=== PATIENT | male | born 1995 | race Caucasian/White ===

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

== ENCOUNTER 2019-07-29 18:47 | Emergency (ER) | payer SELFPAY ==
[2019-07-29 18:52] VITALS: BP 134/81
[2019-07-29] MEDS ORDERED: LIDOCAINE 1% INJ-PF (10 MG/ML) 30 ML SDV INJ ONE (19:00)
[2019-07-29] MEDS ORDERED: AZITHROMYCIN 250 MG TABLET PO ONE (19:00)
[2019-07-29] MEDS ORDERED: CEFTRIAXONE INJ 250 MG VIAL IM ONE (19:06)
--- NOTE | 2019-07-29 19:06 | ER Document Report ---
ED GI/ - General Chief Complaint: STD Exposure Stated Complaint: POSSILE STD Time Seen by Provider: 07/29/19 18:58 Mode of Arrival: Ambulatory Information source: Patient Notes: 23-year-old male presented to ED for request for treatment for STD. He states his was seen last night for chlamydia she did test positive for chlamydia. He states he need to be tested and treated. He states he had no other concerns but the chlamydia. He is alert oriented respirations regular nonlabored speaking in full sentences. He states he did not have any symptoms at this time. TRAVEL OUTSIDE OF THE [place] IN LAST 30 DAYS: No - HPI Patient complains to provider of: Other - Concern for STD as his has been tested positive for chlamydia Onset: Other - States his tested positive yesterday Quality of pain: No pain Pain Level: Denies Sexual history: Unprotected intercourse Associated symptoms: None Exacerbated by: Denies Relieved by: Denies Similar symptoms previously: No Recently seen / treated by doctor: No - Related Data Allergies/Adverse Reactions: No Known Allergies Allergy (Verified 07/29/19 18:57) Past Medical History - General Information source: Patient - Social History Smoking Status: Current Every Day Smoker Cigarette use (# per day): Yes - Half pack a day Chew tobacco use (# tins/day): No Smoking Education Provided: Yes - 4 minutes Frequency of alcohol use: Occasional Drug Abuse: None Family History: None Patient has suicidal ideation: No Patient has homicidal ideation: No - Past Medical History Cardiac Medical History: Reports: None Pulmonary Medical History: Reports: None EENT Medical History: Reports: None Neurological Medical History: Reports: None Endocrine Medical History: Reports: None Renal/ Medical History: Reports: None Malignancy Medical History: Reports None GI Medical History: Reports: None Musculoskeletal Medical History: Reports None Skin Medical History: Reports None Psychiatric Medical History: Reports: Hx Attention Deficit Hyperactivity Disorder Traumatic Medical History: Reports: None Infectious Medical History: Reports: None Past Surgical History: Reports: Hx Tonsillectomy - ADNOIDS - Immunizations Immunizations up to date: Yes Hx Diphtheria, Pertussis, Tetanus Vaccination: Yes Review of Systems - Review of Systems Constitutional: No symptoms reported EENT: No symptoms reported Cardiovascular: No symptoms reported Respiratory: No symptoms reported Gastrointestinal: No symptoms reported Genitourinary: No symptoms reported Male Genitourinary: No symptoms reported, Other - Concern for STD as he states his tested positive for chlamydia Musculoskeletal: No symptoms reported Skin: No symptoms reported Hematologic/Lymphatic: No symptoms reported Neurological/Psychological: No symptoms reported Physical Exam - Vital signs Vitals: Temp Pulse Resp BP Pulse Ox 98.8 F 94 18 134/81 H 98 07/29/19 18:50 07/29/19 18:50 07/29/19 18:50 07/29/19 18:50 07/29/19 18:50 Interpretation: Normal - General General appearance: Appears well, Alert - HEENT Head: Normocephalic, Atraumatic Eyes: Normal Pupils: PERRL - Respiratory Respiratory status: No respiratory distress Chest status: Nontender Breath sounds: Normal Chest palpation: Normal - Cardiovascular Rhythm: Regular Heart sounds: Normal auscultation Murmur: No - Abdominal Inspection: Normal Distension: No distension Bowel sounds: Normal Tenderness: Nontender Organomegaly: No organomegaly - Back Back: Normal, Nontender - Extremities General upper extremity: Normal inspection, Nontender, Normal color, Normal ROM, Normal temperature General lower extremity: Normal inspection, Nontender, Normal color, Normal ROM, Normal temperature, Normal weight bearing. No: Brendan's sign - Neurological Neuro grossly intact: Yes Cognition: Normal Orientation: AAOx4 Bulan Coma Scale Eye Opening: Spontaneous [place] Coma Scale Verbal: Oriented Faizan Coma Scale Motor: Obeys Commands Faizan Coma Scale Total: 15 Speech: Normal Motor strength normal: LUE, RUE, LLE, RLE Sensory: Normal - Psychological Associated symptoms: Normal affect, Normal mood - Skin Skin Temperature: Warm Skin Moisture: Dry Skin Color: Normal Course - Re-evaluation Re-evalutation: 07/29/19 22:33 Was treated with Rocephin and azithromycin as his was tested positive ye sterday for chlamydia. Patient states he has no symptoms at this time. Patient was given instructions on no sexual intercourse for 10 days and to be retested to ensure the chlamydia was completely gone and to test for any other STDs present. Verbalized understanding and agreement with treatment plan and patient was discharged home. - Vital Signs Vital signs: Temp Pulse Resp BP Pulse Ox 98.8 F 94 18 134/81 H 98 07/29/19 18:57 07/29/19 18:50 07/29/19 18:50 07/29/19 18:50 07/29/19 18:50 Discharge - Discharge Clinical Impression: Exposure to STD Condition: Stable Disposition: HOME, SELF-CARE Instructions: [facility] Additional Instructions: You state your was seen yesterday and tested positive for chlamydia and did receive treatment for the chlamydia. You will receive a shot of Rocephin and a dose azithromycin at this time. This is a complete treatment for chlamydia. If you develop any symptoms please follow-up with the health department for further testing. CEPHALOSPORINS: An antibiotic of the cephalosporin class has been prescribed. This type of antibiotic covers a wide variety of infections, including those of the skin, lungs, middle ear, and urinary tract. This antibiotic is somewhat similar to the penicillin family. In rare cases, a person who is allergic to penicillin will also be allergic to this medication. If you have had a severe allergic reaction to penicillin, and have not taken this antibiotic since that time, notify your doctor. Antibiotics which cover many germs ("broad spectrum" antibiotics) are more likely to cause diarrhea or "yeast" infections. Women prone to vaginal yeast problems may suffer an attack after taking this antibiotic. In infants, oral thrush (white spots "stuck" on the cheek) or yeast diaper rash may result. See your doctor if these problems occur. Call the doctor at once if you develop hives, itching, shortness of breath, or lightheadedness. AZITHROMYCIN: Azithromycin (Zithromax) is a broad spectrum antibiotic in the same class as erythromycin. It can treat a variety of bacterial infections, but is most frequently used for respiratory infections. Azithromycin is extremely long-lasting. It accumulates in body tissues and continues to kill bacteria for many days. In order to improve absorption, Azithromycin should be taken at least one hour before or two hours after a meal. It does not have the same strong tendency to upset the stomach as erythromycin and is usually very well tolerated. Patients who have had a rash or other true allergic reactions to erythromycin should not take this medication. Call if you develop gastrointestinal distress, severe diarrhea, rash, hives, itching, or shortness of breath. FOLLOW-UP CARE: If you have been referred to a physician for follow-up care, call the physicians office for an appointment as you were instructed or within the next two days. If you experience worsening or a significant change in your symptoms, notify the physician immediately or return to the Emergency Department at any time for re-evaluation. No sexual intercourse for 10 days after your treatment. Then you need to be reevaluated by the health department in 7 to 10 days. Forms: Smoking Cessation Education, Elevated Blood Pressure
== END 2019-07-29 19:30 | disposition home or self-care (01) ==
LOC: ER 18:47
DX: Z20.2 Contact with and (suspected) exposure to infections with a predominantly sexual mode of transmission (principal); F17.210 Nicotine dependence, cigarettes, uncomplicated
CPT/HCPCS: 99283; 96372; J3490; J0696